=== PATIENT | male | born 1980 | race African-American/Black ===

== ENCOUNTER 2018-08-15 18:16 | Observation (INO) | payer SELFPAY ==
--- NOTE | 2018-08-15 18:20 | EDM.PDOC ---
ED HPI GENERAL MEDICAL PROBLEM - General Stated Complaint: PERSONAL PROBLEM Time Seen by Provider: 08/15/18 18:18 Source of Information: Reports: Patient History Limitations: Reports: No Limitations - History of Present Illness INITIAL COMMENTS - FREE TEXT/NARRATIVE: HISTORY AND PHYSICAL: History of present illness: Patient is a 37-year-old male who presents to the ED today with concerns of burning with urination 4 days. Patient states that last week he did have a new partner with sexual encounter and did not use proper protection. He states he is concerned he has sexual transmitted infection causing the burning of urination. He denies fever, chills, abdominal pain, testicular pain, scrotal tenderness or masses, no drainage, nausea, vomiting, sore throat, skin rash, cough, shortness of breath, palpitations, headache, or all other GI, , cardiovascular, or respiratory concerns. Patient denies any health history. Review of systems: As per history of present illness and below otherwise all systems reviewed and negative. Past medical history: As per history of present illness and as reviewed below otherwise noncontributory. Surgical history: As per history of present illness and as reviewed below otherwise noncontributory. Social history: See social history for further information Family history: As per history of present illness and as reviewed below otherwise noncontributory. Physical exam: General: Patient is alert, oriented, and in no acute distress. He is sitting comfortably on exam table. HEENT: Atraumatic, normocephalic, pupils equal and reactive bilaterally, negative for conjunctival pallor or scleral icterus, mucous membranes moist, TMs normal bilaterally, throat clear, neck supple, nontender, trachea midline. No drooling or trismus noted. No meningeal signs. No hot potato voice noted. Lungs: Clear to auscultation, breath sounds equal bilaterally, chest nontender. Heart: S1S2, regular rate and rhythm without overt murmur Abdomen: Soft, nondistended, nontender. Negative for masses or hepatosplenomegaly. Negative for costovertebral tenderness. Pelvis: Stable nontender. Genitourinary: Deferred. Rectal: Deferred. Skin: Intact, warm, dry. No lesions or rashes noted. Extremities: Atraumatic, negative for cords or calf pain. Neurovascular unremarkable. Neuro: Awake, alert, oriented. Cranial nerves II through XII unremarkable. Cerebellum unremarkable. Motor and sensory unremarkable throughout. Exam nonfocal. Notes: On patient's urinalysis, he did have greater than 1000 glucose level. Discussed this finding with him and the potential for further evaluation. He is agreeable for further evaluation and will do lab work at this time. Patient does have an elevated hemoglobin A1c at 11.3, and a glucose reading above 500. IV fluids and insulin given with education; will continue to monitor sugar. As patient is a newly diagnosed diabetic and likely requiring insulin feel it is best patient to stay over night for observation and better diabetic management. Discussed admission with patient and he is agreeable. Consult to Dr. Cervantes was willing to admit patient. Diagnostics: CBC, CMP, UA, gonorrhea and chlamydia, hemoglobin A1c, ABG Therapeutics: Saline, insulin Impression: Diabetes, new diagnosis Plan: 1. Admit to observation Definitive disposition and diagnosis as appropriate pending reevaluation and review of above. - Related Data Allergies Allergy/AdvReac Type Severity Reaction Status Date / Time No Known Allergies Allergy Verified 08/15/18 18:18 Home Meds: Home Meds . [No Known Home Meds] 08/15/18 [History] ED ROS GENERAL - Review of Systems Review Of Systems: ROS reveals no pertinent complaints other than HPI. ED EXAM, GENERAL - Physical Exam Exam: See Below (See dictation) Course - Vital Signs Last Recorded V/S: Last Vital Signs Temp 98.5 F 08/15/18 18:18 Pulse 103 H 08/15/18 18:18 Resp 16 08/15/18 18:18 BP 155/101 H 08/15/18 18:18 Pulse Ox 98 08/15/18 18:18 - Orders/Labs/Meds Orders: Active Orders 24 hr Category Date Time Status Admission Status [Patient Status] [ADT] Stat ADT 08/15/18 20:42 Active Glucose [Blood Glucose Check, Bedside] [RC] ONETIME Care 08/15/18 18:49 Active CHLAMYDIA AND GONORRHEA BY TMA Stat Lab 08/15/18 18:28 Received CULTURE URINE [RM] Stat Lab 08/15/18 18:20 Received Labs: Laboratory Tests 08/15/18 08/15/18 08/15/18 Range/Units 18:20 19:05 19:05 WBC 8.26 (4.0-11.0) K/uL RBC 5.07 (4.50-5.90) M/uL Hgb 14.7 (13.0-17.0) g/dL Hct 44.2 (38.0-50.0) % MCV 87.2 (80.0-98.0) fL MCH 29.0 (27.0-32.0) pg MCHC 33.3 (31.0-37.0) g/dL RDW Std Deviation 40.8 (28.0-62.0) fl RDW Coeff of Alicia 13 (11.0-15.0) % Plt Count 279 (150-400) K/uL MPV 10.10 (7.40-12.00) fL Neut % (Auto) 49.5 (48.0-80.0) % Lymph % (Auto) 43.6 H (16.0-40.0) % [place] % (Auto) 5.4 (0.0-15.0) % Eos % (Auto) 1.1 (0.0-7.0) % Baso % (Auto) 0.4 (0.0-1.5) % Neut # (Auto) 4.1 (1.4-5.7) K/uL Lymph # (Auto) 3.6 H (0.6-2.4) K/uL [place] # (Auto) 0.5 (0.0-0.8) K/uL Eos # (Auto) 0.1 (0.0-0.7) K/uL Baso # (Auto) 0.0 (0.0-0.1) K/uL Nucleated RBC % 0.0 /100WBC Nucleated RBCs # 0 K/uL ABG pH (7.35-7.45) ABG pCO2 (35-45) mmHG ABG pO2 (75-100) mmHG ABG HCO3 (22-26) mEq/L ABG Total CO2 ABG Base Excess (-2.0-2.0) Sodium (136-148) mmol/L Potassium (3.5-5.1) mmol/L Chloride (98-107) mmol/L Carbon Dioxide (21.0-32.0) mmol/L BUN (7.0-18.0) mg/dL Creatinine (0.8-1.3) mg/dL Est Cr Clr Drug Dosing mL/min Estimated GFR (MDRD) ml/min Glucose (74-106) mg/dL Hemoglobin A1c 11.4 H (4.5-6.2) % Calcium (8.5-10.1) mg/dL Total Bilirubin (0.2-1.0) mg/dL AST (15-37) IU/L ALT (14-63) IU/L Alkaline Phosphatase (46-116) U/L Total Protein (6.4-8.2) g/dL Albumin (3.4-5.0) g/dL Globulin (2.6-4.0) g/dL Albumin/Globulin Ratio (0.9-1.6) Urine Color YELLOW Urine Appearance CLEAR Urine pH 5.5 (5.0-8.0) Ur Specific [place] 1.010 (1.001-1.035) Urine Protein NEGATIVE (NEGATIVE) mg/dL Urine Glucose (UA) >=1000 (NEGATIVE) mg/dL Urine Ketones NEGATIVE (NEGATIVE) mg/dL Urine Occult Blood NEGATIVE (NEGATIVE) Urine Nitrite NEGATIVE (NEGATIVE) Urine Bilirubin NEGATIVE (NEGATIVE) Urine Urobilinogen 0.2 (<2.0) EU/dL Ur Leukocyte Esterase TRACE H (NEGATIVE) Urine RBC 0-1 (0-2/HPF) Urine WBC 2-4 (0-5/HPF) Ur Epithelial Cells NOT SEEN (NONE-FEW) Urine Bacteria FEW (NEGATIVE) 08/15/18 08/15/18 Range/Units 19:05 20:06 WBC (4.0-11.0) K/uL RBC (4.50-5.90) M/uL Hgb (13.0-17.0) g/dL Hct (38.0-50.0) % MCV (80.0-98.0) fL MCH (27.0-32.0) pg MCHC (31.0-37.0) g/dL RDW Std Deviation (28.0-62.0) fl RDW Coeff of Alicia (11.0-15.0) % Plt Count (150-400) K/uL MPV (7.40-12.00) fL Neut % (Auto) (48.0-80.0) % Lymph % (Auto) (16.0-40.0) % [place] % (Auto) (0.0-15.0) % Eos % (Auto) (0.0-7.0) % Baso % (Auto) (0.0-1.5) % Neut # (Auto) (1.4-5.7) K/uL Lymph # (Auto) (0.6-2.4) K/uL [place] # (Auto) (0.0-0.8) K/uL Eos # (Auto) (0.0-0.7) K/uL Baso # (Auto) (0.0-0.1) K/uL Nucleated RBC % /100WBC Nucleated RBCs # K/uL ABG pH 7.391 (7.35-7.45) ABG pCO2 41 (35-45) mmHG ABG pO2 84 (75-100) mmHG ABG HCO3 25 (22-26) mEq/L ABG Total CO2 22.2 ABG Base Excess -0.2 (-2.0-2.0) Sodium 130 L (136-148) mmol/L Potassium 4.4 (3.5-5.1) mmol/L Chloride 93 L (98-107) mmol/L Carbon Dioxide 26.7 (21.0-32.0) mmol/L BUN 13 (7.0-18.0) mg/dL Creatinine 1.3 (0.8-1.3) mg/dL Est Cr Clr Drug Dosing 86.22 mL/min Estimated GFR (MDRD) > 60.0 ml/min Glucose 579 H* (74-106) mg/dL Hemoglobin A1c (4.5-6.2) % Calcium 9.4 (8.5-10.1) mg/dL Total Bilirubin 0.6 (0.2-1.0) mg/dL AST 21 (15-37) IU/L ALT 36 (14-63) IU/L Alkaline Phosphatase 133 H (46-116) U/L Total Protein 8.6 H (6.4-8.2) g/dL Albumin 3.8 (3.4-5.0) g/dL Globulin 4.8 H (2.6-4.0) g/dL Albumin/Globulin Ratio 0.8 L (0.9-1.6) Urine Color Urine Appearance Urine pH (5.0-8.0) Ur Specific [place] (1.001-1.035) Urine Protein (NEGATIVE) mg/dL Urine Glucose (UA) (NEGATIVE) mg/dL Urine Ketones (NEGATIVE) mg/dL Urine Occult Blood (NEGATIVE) Urine Nitrite (NEGATIVE) Urine Bilirubin (NEGATIVE) Urine Urobilinogen (<2.0) EU/dL Ur Leukocyte Esterase (NEGATIVE) Urine RBC (0-2/HPF) Urine WBC (0-5/HPF) Ur Epithelial Cells (NONE-FEW) Urine Bacteria (NEGATIVE) Meds: Medications Discontinued Medications Generic Name Dose Route Start Last Admin Trade Name Freq PRN Reason Stop Dose Admin Sodium Chloride 1,000 mls @ 999 mls/hr 08/15/18 18:56 08/15/18 19:05 Normal Saline IV 08/15/18 19:56 999 mls/hr STAT ONE Administration Insulin Human Regular 7 unit 08/15/18 19:54 08/15/18 20:17 Novolin R IVPUSH 08/15/18 19:55 7 units ONETIME ONE Administration Protocol Departure - Departure Time of Disposition: 20:45 Disposition: Refer to Observation Clinical Impression: Newly diagnosed diabetes - Discharge Information Referrals: PCP,None [Primary Care Provider] - - My Orders Last 24 Hours: My Active Orders 08/15/18 18:20 CULTURE URINE [RM] Stat 08/15/18 18:28 CHLAMYDIA AND GONORRHEA BY TMA Stat 08/15/18 18:49 Glucose [Blood Glucose Check, Bedside] [RC] ONETIME 08/15/18 20:42 Admission Status [Patient Status] [ADT] Stat - Assessment/Plan Last 24 Hours: My Active Orders 08/15/18 18:20 CULTURE URINE [RM] Stat 08/15/18 18:28 CHLAMYDIA AND GONORRHEA BY TMA Stat 08/15/18 18:49 Glucose [Blood Glucose Check, Bedside] [RC] ONETIME 08/15/18 20:42 Admission Status [Patient Status] [ADT] Stat
[2018-08-15] MEDS ORDERED: Sodium Chloride 0.9% 1,000 ML IV ONE (18:56)
[2018-08-15 19:43] LABS: CHLORIDE,CL 93 mmol/L (98-107)
[2018-08-15 19:52] LABS: HEMOGLOBIN A1C 11.4 % (4.5-6.2)
[2018-08-15] MEDS ORDERED: Insulin Regular, Human 100 Units/ML 10 ML Vial IVPUSH ONE (19:54)
[2018-08-15 20:03] LABS: SODIUM,NA 130 mmol/L (136-148)
[2018-08-15] MEDS ORDERED: Azithromycin 250 MG Tab PO STA (21:24)
[2018-08-15] MEDS ORDERED: cefTRIAXone 250 MG in Lidocaine 1% 1 ML IM ONE (21:24)
[2018-08-15] MEDS ORDERED: Acetaminophen 325 MG Tab PO PRN (21:54)
[2018-08-15] MEDS ORDERED: oxyCODONE 5 MG Tab PO PRN (21:55)
[2018-08-15] MEDS: Sodium Chloride 0.9% 1,000 ML IV SCH (22:50)
[2018-08-16 06:52] LABS: CHLORIDE,CL 100 mmol/L (98-107); SODIUM,NA 134 mmol/L (136-148)
--- NOTE | 2018-08-16 08:13 | PCM.HP ---
<Nancy Garcia M - Last Filed: 08/16/18 15:19> H&P History of Present Illness - General Date of Service: 08/16/18 Admit Problem/Dx: Admission Diagnosis/Problem Admission Diagnosis/Problem Diabetes mellitus Source of Information: Patient History Limitations: Reports: No Limitations - History of Present Illness Initial Comments - Free Text/Narative: This 37 year old male with no significant pmh presented to the ED with complaints of burning with urination that started the night before. He reported having a new sexual partner and concerned about G/C. Urine was tested which showed glucose over 1000. Other labwork was obtained and revealed BS over 500 and A1c of 11.4. Upon further interview this morning, he reports he has been very thirsty and drinking a lot of water and urinating in large volumes. He reports no fevers, chills or URI symptoms. No chest pain, shortness of breath or abdominal pain. No diarrhea or constipation. He denies any other medical history. No family history of DM. He does report family history of HTN and high cholesterol with both his father and mother. He confirms tobacco use, smokes about 5-6 cigarettes daily, occasional alcohol and no recreational drug use. In the ED No leukocytosis note. Elevated BS 579 and Na 130, likely pseudohyponatremia from hyperglycemia. He was given Rocephin and Azithromycin for suspected G/C. Cultures pending. He was admitted for new onset DM. - Related Data Allergies/Adverse Reactions: Allergies Allergy/AdvReac Type Severity Reaction Status Date / Time No Known Allergies Allergy Verified 08/15/18 18:18 Home Medications: Home Meds Blood Sugar Diagnostic [Test Strips] 1 each QID #1 box 08/16/18 [Rx] Insulin Glarg,Human.Rec.Analog [Lantus Solostar] 20 units SUBCUT BEDTIME #1 box 08/16/18 [Rx] Insulin Lispro [HumaLOG] 100 unit SQ TID #1 box 08/16/18 [Rx] Lancets 1 each QID #1 box 08/16/18 [Rx] Pen Needle, Diabetic [Pen [place]] 1 each 5XDAY #1 box 08/16/18 [Rx] Past Medical History - Past Health History Medical/Surgical History: Denies Medical/Surgical History Cardiovascular History: Reports: None. Denies: Afib, Blood Clots/VTE/DVT, Hypertension, RI Respiratory History: Reports: None. Denies: Asthma, COPD Gastrointestinal History: Reports: None. Denies: GERD Genitourinary History: Reports: None. Denies: Acute Renal Failure, Chronic Renal Insuffiency Musculoskeletal History: Reports: None Psychiatric History: Reports: None - Infectious Disease History Infectious Disease History: Reports: None Social & Family History - Family History Family Medical History: Noncontributory - Tobacco Use Smoking Status *Q: Current Every Day Smoker Years of Tobacco use: 10 Packs/Tins Daily: 0.5 - Caffeine Use Caffeine Use: Reports: Coffee - Recreational Drug Use Recreational Drug Use: No - Living Situation & Occupation Living situation: Reports: Single Occupation: Unemployed (currently has no job,) H&P Review of Systems - Review of Systems: Review Of Systems: See Below General: Reports: No Symptoms. Denies: Fever, Chills, Malaise, Weakness HEENT: Reports: Visual Changes (intermittent blurred vision). Denies: Dysphasia , Headaches, Sinus Congestion, Sore Throat, Vertigo Pulmonary: Reports: No Symptoms. Denies: Shortness of Breath, Wheezing, Pleuritic Chest Pain Cardiovascular: Reports: No Symptoms. Denies: Chest Pain, Palpitations, Edema, Lightheadedness Gastrointestinal: Reports: No Symptoms. Denies: Abdominal Pain, Black Stool, Bloody Stool, Decreased Appetite, Nausea, Vomiting Genitourinary: Reports: Frequency, Burning Musculoskeletal: Reports: No Symptoms. Denies: Neck Pain Skin: Reports: No Symptoms Psychiatric: Reports: No Symptoms Neurological: Reports: No Symptoms Hematologic/Lymphatic: Reports: No Symptoms Immunologic: Reports: No Symptoms Exam - Exam Exam: See Below - Vital Signs Vital Signs: Last Vital Signs Temp 97.9 F 08/16/18 04:00 Pulse 67 08/16/18 04:00 Resp 17 08/16/18 04:00 BP 125/71 08/16/18 04:00 Pulse Ox 98 08/16/18 04:00 Weight: 85.956 kg - Exam General: Alert, Oriented, Cooperative HEENT: Conjunctiva Clear, Mucosa Moist & Pocola, Posterior Pharynx Clear Lungs: Clear to Auscultation, Normal Respiratory Effort Cardiovascular: Regular Rate, Regular Rhythm, Normal S1, Normal S2 GI/Abdominal Exam: Normal Bowel Sounds, Soft, Non-Tender, No Organomegaly, No Mass Extremities: Normal Inspection, Normal Range of Motion, Non-Tender, No Pedal Edema Neuro Extensive - Mental Status: Alert, Oriented x3 Neuro Extensive - Motor, Sensory, Reflexes: CN II-XII Intact Psychiatric: Alert, Normal Affect, Normal Mood - Patient Data Lab Results Last 24 hrs: Laboratory Results - last 24 hr 08/15/18 08/15/18 08/15/18 Range/Units 18:20 19:05 19:05 WBC 8.26 (4.0-11.0) K/uL RBC 5.07 (4.50-5.90) M/uL Hgb 14.7 (13.0-17.0) g/dL Hct 44.2 (38.0-50.0) % MCV 87.2 (80.0-98.0) fL MCH 29.0 (27.0-32.0) pg MCHC 33.3 (31.0-37.0) g/dL RDW Std Deviation 40.8 (28.0-62.0) fl RDW Coeff of Alicia 13 (11.0-15.0) % Plt Count 279 (150-400) K/uL MPV 10.10 (7.40-12.00) fL Neut % (Auto) 49.5 (48.0-80.0) % Lymph % (Auto) 43.6 H (16.0-40.0) % [place] % (Auto) 5.4 (0.0-15.0) % Eos % (Auto) 1.1 (0.0-7.0) % Baso % (Auto) 0.4 (0.0-1.5) % Neut # (Auto) 4.1 (1.4-5.7) K/uL Lymph # (Auto) 3.6 H (0.6-2.4) K/uL [place] # (Auto) 0.5 (0.0-0.8) K/uL Eos # (Auto) 0.1 (0.0-0.7) K/uL Baso # (Auto) 0.0 (0.0-0.1) K/uL Add Manual Diff Neutrophils % (Manual) (48.0-80.0) % Lymphocytes % (Manual) (16.0-40.0) % Monocytes % (Manual) (0.0-15.0) % Eosinophils % (Manual) (0.0-7.0) % Nucleated RBC % 0.0 /100WBC Absolute Seg Neuts (1.4-5.7) Lymphocytes # (Manual) (0.6-2.4) Monocytes # (Manual) (0.0-0.8) Eosinophils # (Manual) (0.0-0.7) Nucleated RBCs # 0 K/uL ABG pH (7.35-7.45) ABG pCO2 (35-45) mmHG ABG pO2 (75-100) mmHG ABG HCO3 (22-26) mEq/L ABG Total CO2 ABG Base Excess (-2.0-2.0) Sodium (136-148) mmol/L Potassium (3.5-5.1) mmol/L Chloride (98-107) mmol/L Carbon Dioxide (21.0-32.0) mmol/L BUN (7.0-18.0) mg/dL Creatinine (0.8-1.3) mg/dL Est Cr Clr Drug Dosing mL/min Estimated GFR (MDRD) ml/min Glucose (74-106) mg/dL POC Glucose (60-110) mg/dL Hemoglobin A1c 11.4 H (4.5-6.2) % Calcium (8.5-10.1) mg/dL Total Bilirubin (0.2-1.0) mg/dL AST (15-37) IU/L ALT (14-63) IU/L Alkaline Phosphatase (46-116) U/L Total Protein (6.4-8.2) g/dL Albumin (3.4-5.0) g/dL Globulin (2.6-4.0) g/dL Albumin/Globulin Ratio (0.9-1.6) Urine Color YELLOW Urine Appearance CLEAR Urine pH 5.5 (5.0-8.0) Ur Specific [place] 1.010 (1.001-1.035) Urine Protein NEGATIVE (NEGATIVE) mg/dL Urine Glucose (UA) >=1000 (NEGATIVE) mg/dL Urine Ketones NEGATIVE (NEGATIVE) mg/dL Urine Occult Blood NEGATIVE (NEGATIVE) Urine Nitrite NEGATIVE (NEGATIVE) Urine Bilirubin NEGATIVE (NEGATIVE) Urine Urobilinogen 0.2 (<2.0) EU/dL Ur Leukocyte Esterase TRACE H (NEGATIVE) Urine RBC 0-1 (0-2/HPF) Urine WBC 2-4 (0-5/HPF) Ur Epithelial Cells NOT SEEN (NONE-FEW) Urine Bacteria FEW (NEGATIVE) 08/15/18 08/15/18 08/15/18 Range/Units 19:05 20:06 21:21 WBC (4.0-11.0) K/uL RBC (4.50-5.90) M/uL Hgb (13.0-17.0) g/dL Hct (38.0-50.0) % MCV (80.0-98.0) fL MCH (27.0-32.0) pg MCHC (31.0-37.0) g/dL RDW Std Deviation (28.0-62.0) fl RDW Coeff of Alicia (11.0-15.0) % Plt Count (150-400) K/uL MPV (7.40-12.00) fL Neut % (Auto) (48.0-80.0) % Lymph % (Auto) (16.0-40.0) % [place] % (Auto) (0.0-15.0) % Eos % (Auto) (0.0-7.0) % Baso % (Auto) (0.0-1.5) % Neut # (Auto) (1.4-5.7) K/uL Lymph # (Auto) (0.6-2.4) K/uL [place] # (Auto) (0.0-0.8) K/uL Eos # (Auto) (0.0-0.7) K/uL Baso # (Auto) (0.0-0.1) K/uL Add Manual Diff Neutrophils % (Manual) (48.0-80.0) % Lymphocytes % (Manual) (16.0-40.0) % Monocytes % (Manual) (0.0-15.0) % Eosinophils % (Manual) (0.0-7.0) % Nucleated RBC % /100WBC Absolute Seg Neuts (1.4-5.7) Lymphocytes # (Manual) (0.6-2.4) Monocytes # (Manual) (0.0-0.8) Eosinophils # (Manual) (0.0-0.7) Nucleated RBCs # K/uL ABG pH 7.391 (7.35-7.45) ABG pCO2 41 (35-45) mmHG ABG pO2 84 (75-100) mmHG ABG HCO3 25 (22-26) mEq/L ABG Total CO2 22.2 ABG Base Excess -0.2 (-2.0-2.0) Sodium 130 L (136-148) mmol/L Potassium 4.4 (3.5-5.1) mmol/L Chloride 93 L (98-107) mmol/L Carbon Dioxide 26.7 (21.0-32.0) mmol/L BUN 13 (7.0-18.0) mg/dL Creatinine 1.3 (0.8-1.3) mg/dL Est Cr Clr Drug Dosing 86.22 mL/min Estimated GFR (MDRD) > 60.0 ml/min Glucose 579 H* (74-106) mg/dL POC Glucose 487 H (60-110) mg/dL Hemoglobin A1c (4.5-6.2) % Calcium 9.4 (8.5-10.1) mg/dL Total Bilirubin 0.6 (0.2-1.0) mg/dL AST 21 (15-37) IU/L ALT 36 (14-63) IU/L Alkaline Phosphatase 133 H (46-116) U/L Total Protein 8.6 H (6.4-8.2) g/dL Albumin 3.8 (3.4-5.0) g/dL Globulin 4.8 H (2.6-4.0) g/dL Albumin/Globulin Ratio 0.8 L (0.9-1.6) Urine Color Urine Appearance Urine pH (5.0-8.0) Ur Specific [place] (1.001-1.035) Urine Protein (NEGATIVE) mg/dL Urine Glucose (UA) (NEGATIVE) mg/dL Urine Ketones (NEGATIVE) mg/dL Urine Occult Blood (NEGATIVE) Urine Nitrite (NEGATIVE) Urine Bilirubin (NEGATIVE) Urine Urobilinogen (<2.0) EU/dL Ur Leukocyte Esterase (NEGATIVE) Urine RBC (0-2/HPF) Urine WBC (0-5/HPF) Ur Epithelial Cells (NONE-FEW) Urine Bacteria (NEGATIVE) 08/16/18 08/16/18 Range/Units 05:25 05:25 WBC 9.03 (4.0-11.0) K/uL RBC 4.86 (4.50-5.90) M/uL Hgb 13.7 (13.0-17.0) g/dL Hct 42.8 (38.0-50.0) % MCV 88.1 (80.0-98.0) fL MCH 28.2 (27.0-32.0) pg MCHC 32.0 (31.0-37.0) g/dL RDW Std Deviation 40.9 (28.0-62.0) fl RDW Coeff of Alicia 13 (11.0-15.0) % Plt Count 277 (150-400) K/uL MPV 10.80 (7.40-12.00) fL Neut % (Auto) (48.0-80.0) % Lymph % (Auto) (16.0-40.0) % [place] % (Auto) (0.0-15.0) % Eos % (Auto) (0.0-7.0) % Baso % (Auto) (0.0-1.5) % Neut # (Auto) (1.4-5.7) K/uL Lymph # (Auto) (0.6-2.4) K/uL [place] # (Auto) (0.0-0.8) K/uL Eos # (Auto) (0.0-0.7) K/uL Baso # (Auto) (0.0-0.1) K/uL Add Manual Diff YES Neutrophils % (Manual) 41 L (48.0-80.0) % Lymphocytes % (Manual) 51 H (16.0-40.0) % Monocytes % (Manual) 5 (0.0-15.0) % Eosinophils % (Manual) 3 (0.0-7.0) % Nucleated RBC % 0.0 /100WBC Absolute Seg Neuts 3.7 (1.4-5.7) Lymphocytes # (Manual) 4.6 H (0.6-2.4) Monocytes # (Manual) 0.5 (0.0-0.8) Eosinophils # (Manual) 0.3 (0.0-0.7) Nucleated RBCs # 0 K/uL ABG pH (7.35-7.45) ABG pCO2 (35-45) mmHG ABG pO2 (75-100) mmHG ABG HCO3 (22-26) mEq/L ABG Total CO2 ABG Base Excess (-2.0-2.0) Sodium 134 L (136-148) mmol/L Potassium 4.2 (3.5-5.1) mmol/L Chloride 100 (98-107) mmol/L Carbon Dioxide 28.5 (21.0-32.0) mmol/L BUN 12 (7.0-18.0) mg/dL Creatinine 1.1 (0.8-1.3) mg/dL Est Cr Clr Drug Dosing 101.90 mL/min Estimated GFR (MDRD) > 60.0 ml/min Glucose 334 H (74-106) mg/dL POC Glucose (60-110) mg/dL Hemoglobin A1c (4.5-6.2) % Calcium 8.9 (8.5-10.1) mg/dL Total Bilirubin (0.2-1.0) mg/dL AST (15-37) IU/L ALT (14-63) IU/L Alkaline Phosphatase (46-116) U/L Total Protein (6.4-8.2) g/dL Albumin (3.4-5.0) g/dL Globulin (2.6-4.0) g/dL Albumin/Globulin Ratio (0.9-1.6) Urine Color Urine Appearance Urine pH (5.0-8.0) Ur Specific [place] (1.001-1.035) Urine Protein (NEGATIVE) mg/dL Urine Glucose (UA) (NEGATIVE) mg/dL Urine Ketones (NEGATIVE) mg/dL Urine Occult Blood (NEGATIVE) Urine Nitrite (NEGATIVE) Urine Bilirubin (NEGATIVE) Urine Urobilinogen (<2.0) EU/dL Ur Leukocyte Esterase (NEGATIVE) Urine RBC (0-2/HPF) Urine WBC (0-5/HPF) Ur Epithelial Cells (NONE-FEW) Urine Bacteria (NEGATIVE) Result Diagrams: 08/16/18 05:25 08/16/18 05:25 - Problem List (1) Diabetes type 2, uncontrolled SNOMED Code(s): 968129561, 036253940 ICD Code: E11.65 - TYPE 2 DIABETES MELLITUS WITH HYPERGLYCEMIA Status: Acute Qualifiers: Glycemic state: with hyperglycemia Qualified Code(s): E11.65 - Type 2 diabetes mellitus with hyperglycemia (2) Smoker SNOMED Code(s): 90441617 ICD Code: F17.200 - NICOTINE DEPENDENCE, UNSPECIFIED, UNCOMPLICATED Status : Acute (3) Chlamydia contact SNOMED Code(s): 1440058623760 ICD Code: Z20.2 - CONTACT W AND EXPOSURE TO INFECT W A SEXL MODE OF TRANSMISS Status: Acute (4) Gonorrhea of lower genitourinary tract SNOMED Code(s): 91954885 ICD Code: A54.00 - GONOCOCCAL INFECTION OF LOWER GENITOURINARY TRACT, UNSP Status: Acute Problem List Initiated/Reviewed/Updated: Yes Orders Last 24hrs: Active Orders 24 hr Category Date Time Status Admission Status [Patient Status] [ADT] Stat ADT 08/15/18 20:42 Active Blood Glucose Check, Bedside [RC] TIDMEALS Care 08/15/18 21:53 Active Intake and Output [RC] QSHIFT Care 08/16/18 08:00 Active May Shower [RC] ASDIRECTED Care 08/16/18 07:59 Active Oxygen Therapy [RC] PRN Care 08/16/18 08:00 Active Up ad Vy [RC] ASDIRECTED Care 08/16/18 07:59 Active VTE/DVT Education [RC] PER UNIT ROUTINE Care 08/16/18 08:00 Active Vital Signs [RC] Q4H Care 08/16/18 08:00 Active Consult to Change Number Operator [Consult to Diabetic Nurse Cons 08/16/18 07:59 Active Specialist] [CONS] Routine [employer] Diet [DIET] Diet 08/16/18 Breakfast Active CHLAMYDIA AND GONORRHEA BY TMA Stat Lab 08/15/18 18:28 Received CULTURE URINE [RM] Stat Lab 08/15/18 18:20 Received Acetaminophen [Tylenol] Med 08/15/18 21:54 Active 650 mg PO Q4H PRN Insulin Aspart [NovoLOG] Med 08/16/18 07:30 Active See Protocol SUBCUT TIDAC Sodium Chloride 0.9% [Normal Saline] 1,000 ml Med 08/15/18 22:00 Active IV ASDIRECTED oxyCODONE Med 08/15/18 21:55 Active 5 mg PO Q4H PRN Resuscitation Status Routine Resus Stat 08/16/18 08:00 Ordered Medication Orders Acetaminophen (Tylenol) 650 mg PO Q4H PRN PRN Reason: Pain/Fever Sodium Chloride (Normal Saline) 1,000 mls @ 75 mls/hr IV ASDIRECTED [facility] Last Admin: 08/15/18 22:50 Dose: 75 mls/hr Insulin Aspart (Novolog) 0 unit SUBCUT TIDAC WALTER; Protocol Oxycodone HCl (Oxycodone) 5 mg PO Q4H PRN PRN Reason: Pain (moderate 4-6) Assessment/Plan Comment:: This 37 year old male admitted with newly diagnosed DM 1. DM: Will consult rapid outsole stitcher for education and insulin teaching. We did discuss diet and lifestyle changes along with insulin use. Dr Cervantes recommended C peptid to be obtain, this is a send out and is pending. Will give Lantus 10 units now and continue with SSI Novolog. 2. G/C contact: Appropriately treated in ED. VTE prophylaxis: SCDs Dispo: later today Discharge Plan: Tarik visited with DM educator and received education on insulin administration and Diabetes. He has done well, he will be discharged home on SSI 1:12 and carb correction 1:10 per direction of Ludmila DM educator. Will also be on Lantus 20 units at bedtime. C peptide pending upon discharge. He is to follow up with Dr Pathak in 1 week as well as Ludmila in diabetic education. Supplies and insulin sent to pharmacy. He is to return to ED or clinic if concerns should arise. <Leandro Cervantes - Last Filed: 08/17/18 07:41> H&P History of Present Illness - General Admit Problem/Dx: Admission Diagnosis/Problem Admission Diagnosis/Problem Diabetes mellitus - History of Present Illness Initial Comments - Free Text/Narative: I have seen and examined the patient independently of Nancy Garcia CNP. I have discussed the case with her. I have reviewed and agree with the assessment and plan of care for the patient as outlined by her. Please see orders. Exam - Vital Signs Vital Signs: Last Vital Signs Temp 36.4 C 08/16/18 11:30 Pulse 84 08/16/18 11:30 Resp 16 08/16/18 11:30 BP 131/89 08/16/18 11:30 Pulse Ox 95 08/16/18 11:30 - Patient Data Lab Results Last 24 hrs: Laboratory Results - last 24 hr 08/16/18 08/16/18 08/16/18 Range/Units 06:16 09:17 11:26 POC Glucose 295 H 311 H 250 H (60-110) mg/dL Result Diagrams: 08/16/18 05:25 08/16/18 05:25 Orders Last 24hrs: Active Orders 24 hr Category Date Time Status Intake and Output [RC] Q12H Care 08/16/18 08:00 Active May Shower [RC] ASDIRECTED Care 08/16/18 07:59 Active Oxygen Therapy [RC] PRN Care 08/16/18 08:00 Active Ready for Discharge [RC] PER UNIT ROUTINE Care 08/16/18 13:58 Active Up ad Vy [RC] ASDIRECTED Care 08/16/18 07:59 Active VTE/DVT Education [RC] PER UNIT ROUTINE Care 08/16/18 08:00 Active Vital Signs [RC] Q4H Care 08/16/18 08:00 Active Consult to Change Number Operator [Consult to Diabetic Nurse Cons 08/16/18 07:59 Active Specialist] [CONS] Routine Resuscitation Status Routine Resus Stat 08/16/18 08:00 Ordered
[2018-08-16] MEDS ORDERED: Insulin Glargine,Human Rec. Analog 100 Units/ML 3 ML Pen SUBCUT SCH (09:15)
[2018-08-16] MEDS: Insulin Aspart 100 Units/ML 3 ML Pen SUBCUT SCH ×2 (09:18→13:41)
[2018-08-16] MEDS: Sodium Chloride 0.9% 1,000 ML IV SCH (12:29)
== END 2018-08-16 14:30 | disposition home or self-care (01) ==
LOC: MW.ED 18:16 → MW.MS 21:35
PROVIDERS: ADMIT Internal Medicine; ATTEND Internal Medicine
DX: E11.65 Type 2 diabetes mellitus with hyperglycemia (principal); A54.00 Gonococcal infection of lower genitourinary tract, unspecified; F17.200 Nicotine dependence, unspecified, uncomplicated; Z20.2 Contact with and (suspected) exposure to infections with a predominantly sexual mode of transmission
CPT/HCPCS: 36415; 36600; 80048; 80053; 81001; 82803; 82962; 83036; 84681; 85025; 87086; 96361; 96374; 99284; A9270; G0378; J0696; J1815; J2001; J7040; 87491; 87591; 96360